=== PATIENT | male | born 1985 | race Caucasian/White ===

== ENCOUNTER 2023-09-17 19:32 | Emergency (ER) | payer OTHER ==
[~2023-09-17] VITALS: Ht 170.1 cm; Wt 62.6 kg
[2023-09-17] MEDS ORDERED: Tdap Vaccine 0.5 ML SYR (Adult Vaccine) IM ONE (19:55)
[2023-09-17] MEDS ORDERED: Doxycycline Hyclate 100 MG CAP PO ONE (20:45)
[2023-09-17] MEDS ORDERED: VIBRAMYCIN100 MG PO (20:46)
== END 2023-09-17 21:01 | disposition home or self-care (01) ==
LOC: ED 19:32
DX: S70.351A Superficial foreign body, right thigh, initial encounter (principal); S70.11XA Contusion of right thigh, initial encounter; Z91.030 Bee allergy status; W20.8XXA Other cause of strike by thrown, projected or falling object, initial encounter; Y93.89 Activity, other specified; Y92.89 Other specified places as the place of occurrence of the external cause; Y99.8 Other external cause status

== ENCOUNTER → 2023-10-04 | Day surgery (SDC) | payer OTHER ==
[2023-10-01 13:40] VITALS: BP 127/83
[~2023-10-04] VITALS: Ht 170.1 cm; Wt 67.1 kg
[~2023-10-04] MED LIST: Lactated Ringer's Solution 1,000 ML IV ONE; Lactated Ringer's Solution 1,000 ML IV SCH; Lidocaine Hydrochloride 2% 10 ML AMP IV ONE; Lidocaine Hydrochloride 30 ML VIAL ONE; Midazolam Hydrochloride 2 MG/2 ML VIAL IV ONE; Midazolam Hydrochloride 2 MG/2 ML VIAL ONE; PROPOFOL 200 MG/20 ML VIAL IV ONE; VIBRAMYCIN100 MG PO; ceFAZolin sodium/sodium chlor 10 ML IV ONE
[2023-10-04 09:20] VITALS: BP 124/81
[2023-10-04 10:46] VITALS: BP 118/77
[2023-10-04 10:57] VITALS: BP 112/72
[2023-10-04 11:15] VITALS: BP 118/85
== END | disposition home or self-care (01) ==
LOC: SDC 10-01 14:00
PROVIDERS: ATTEND Orthopaedic Surgery
DX: S71.121A Laceration with foreign body, right thigh, initial encounter (principal); F31.9 Bipolar disorder, unspecified; F41.9 Anxiety disorder, unspecified; F17.210 Nicotine dependence, cigarettes, uncomplicated; Z79.899 Other long term (current) drug therapy; Z98.890 Other specified postprocedural states; X58.XXXA Exposure to other specified factors, initial encounter; Y93.89 Activity, other specified; Y92.89 Other specified places as the place of occurrence of the external cause; Y99.8 Other external cause status

== ENCOUNTER 2023-12-04 12:41 | Emergency (ER) | payer OTHER ==
[~2023-12-04] VITALS: Ht 170.1 cm; Wt 68.9 kg
[~2023-12-04 12:41] MED LIST changes: -Lactated Ringer's Solution 1,000 ML IV ONE; -Lactated Ringer's Solution 1,000 ML IV SCH; -Lidocaine Hydrochloride 2% 10 ML AMP IV ONE; -Lidocaine Hydrochloride 30 ML VIAL ONE; -Midazolam Hydrochloride 2 MG/2 ML VIAL IV ONE; -Midazolam Hydrochloride 2 MG/2 ML VIAL ONE; -PROPOFOL 200 MG/20 ML VIAL IV ONE; -ceFAZolin sodium/sodium chlor 10 ML IV ONE
== END 2023-12-04 15:18 | disposition home or self-care (01) ==
LOC: ED 12:41
DX: H72.91 Unspecified perforation of tympanic membrane, right ear (principal); F41.9 Anxiety disorder, unspecified; F32.A Depression, unspecified; Z91.030 Bee allergy status; Z98.890 Other specified postprocedural states